=== PATIENT | male | born 1985 | race African-American/Black ===

== ENCOUNTER → 2022-11-22 | Outpatient (CLI) | payer OTHER ==
[2022-11-22 13:45] LABS: FREE T4 (FREE THYROXINE) 0.9 ng/dL (0.76-1.46); THYROID STIMULATING HORMONE 0.86 uIU/mL (0.36-3.74)
== END | disposition home or self-care (01) ==
LOC: MSR 12:46
PROVIDERS: ATTEND Chiropractor
DX: M19.072 Primary osteoarthritis, left ankle and foot (principal); E04.1 Nontoxic single thyroid nodule; M72.2 Plantar fascial fibromatosis
CPT/HCPCS: 84439; 84443; 84481